=== PATIENT | male | born 1965 | race Caucasian/White ===

== ENCOUNTER 2016-12-25 22:35 | Inpatient (IN) | payer BC ==
--- NOTE | ~2016-12-25 | HP ---
Unit #: [id number] #: [id number] Patient: ANETTE MARSHALL [id number] [address] [address] [id number] MR#: [id number] NAME: ANETTE MARSHALL ROOM: 467 Age: 51 Sex: M Admission Date: 12/25/2016 : 1965 Attending Physician: Chandler Gaines M.D. HISTORY AND PHYSICAL HISTORY AND EXAM Mr. Marshall is a 51-year-old gentleman who was in his usual state of health and developed right-sided abdominal pain over the course of 12 to 18 hours. It was associated with nausea but no vomiting, fever or chills. He came to the emergency room and CT scan was consistent with early appendicitis. No other abnormalities were noted. PAST MEDICAL HISTORY Patient has a history of hypertension and he has had several colonoscopies because of a family history of colon cancer. IMMUNIZATIONS He has not had a flu vaccine. FAMILY HISTORY Colon cancer and lung cancer. SOCIAL HISTORY , works in a warehouse, nonsmoker, social alcohol drinker, does not use any recreational drugs. REVIEW OF SYSTEMS No fever, chills or vomiting. No diarrhea or dysuria. PHYSICAL EXAMINATION VITAL SIGNS: On current examination temperature is 99.7, pulse 109, respirations 18, blood pressure 108/60. GENERAL: He is awake, alert and oriented. HEENT: Unremarkable. No carotid bruits. CARDIAC EXAM: Regular rate and rhythm, without murmur. LUNGS: Clear. ABDOMEN: Soft. He has localized rebound tenderness in the right lower quadrant. EXTREMITIES: No edema. NEUROLOGICALLY: Grossly intact. No skin rashes or lesions. DIAGNOSTIC STUDIES LABORATORY: Morning labs are pending. In the emergency room at [facility] his laboratories were reported as normal. ASSESSMENT AND PLAN A 51-year-old gentleman with acute appendicitis. We discussed laparoscopic appendectomy including risks, benefits, complications and the Unit #: [id number] #: [id number] Patient: ANETTE MARSHALL possibility of conversion to open procedure. He understands and agrees to proceed. Dictated by Chandler Gaines M.D. GIANNA/mario TD: 12/26/2016 13:42 JOB #: [id number] HISTORY AND PHYSICAL X Chandler Gaines MD HISTORY AND PHYSICAL
--- NOTE | ~2016-12-25 | EKG ---
PATIENT: ANETTE MARSHALL UNIT #: [id number] Ventricular Rate: 105 BPM Atrial Rate: 105 BPM P-R Interval: 136 ms QRS Duration: 88 ms Q-T Interval: 318 ms QTC Calculation(Bezet): 420 ms P [place]: 53 degrees Calculated R [place]: 67 degrees Calculated T [place]: 45 degrees Diagnosis Line: Sinus tachycardia Diagnosis Line: Otherwise normal ECG Diagnosis Line: No previous ECGs available Diagnosis Line: Confirmed by ELINA MERCADO MD ([id number]) on Diagnosis Line: 12/27/2016 12:05:35 AM INTERPRETING MD: JESS ZHU
--- NOTE | ~2016-12-25 | OR ---
Unit #: [id number] #: [id number] Patient: ANETTE MARSHALL [id number] [address] [place], [place] [address] [id number] I MR#: [id number] NAME: ANETTE MARSHALL ROOM: 467 Date of Procedure: 12/26/2016 Admission Date: 12/25/2016 Surgeon: Chandler Gaines M.D. : 1965 Attending Physician: Chandler Gaines M.D. OPERATIVE REPORT PREOPERATIVE DIAGNOSIS Acute appendicitis. POSTOPERATIVE DIAGNOSIS Acute appendicitis. PROCEDURE PERFORMED Laparoscopic appendectomy. ANESTHESIA General endotracheal anesthesia. ESTIMATED BLOOD LOSS 20 mL. INDICATIONS FOR PROCEDURE A 51-year-old gentleman presents to the ER with abdominal pain and was found on evaluation to have uncomplicated acute appendicitis. DESCRIPTION OF PROCEDURE The patient was transported from his hospital room to the operating room and after induction of general endotracheal anesthesia, a Gonzalez catheter was placed. His abdominal wall hair was clipped, and he was prepped and draped in usual sterile fashion. The patient was already on IV antibiotics. A 5-mm supraumbilical incision was made. Veress needle was placed. Pneumoperitoneum was created. Then, a 5-mm trocar was placed. Laparoscope was introduced into the peritoneal cavity under direct vision. The suprapubic and the infraumbilical ports were placed under direct vision. The appendix was identified. It was purulent and it was mobilized from the lateral side wall and elevated. Mesoappendix was from the base of the appendix and the mesoappendix was clamped, divided, and ligated with an Endo DEIDRE. I then clamped, divided and ligated the appendix as it entered into the cecum. The appendix was put in an EndoCatch bag and brought out through the 12 mm port site. The staple lines were intact. There was good hemostasis. We irrigated and washed the area out. Once the irrigant was removed, we rechecked the area and there was excellent hemostasis. The 12 mm fascial defect was closed using a neoClose device and the closure was air-tight. I then reduced the pneumoperitoneum. Removed the laparoscope and trocars as we reduced pneumoperitoneum. A 0.5% Marcaine with epinephrine was infiltrated into each trocar site. The skin was closed with 4-0 Monocryl subcuticular closure and Dermabond skin adhesive. Gonzalez catheter was removed and he Unit #: [id number] #: [id number] Patient: ANETTE MARSHALL was transported to the recovery in stable condition. Dictated by... Yesi Sinha/xavier TD: 12/26/2016 16:54 JOB #: [id number] OPERATIVE REPORT X Chandler Gaines MD X PROCEDURE OPERATIVE NOTE
[2016-12-25] MEDS ORDERED: ZESTORETIC 10/11 TA1 PO (22:53)
[2016-12-25] MEDS ORDERED: VITAMIN D350000 UNIT PO (22:54)
[2016-12-26 07:34] LABS: BASOPHIL# 0.1 X10e3 (0-0.3); BASOPHIL% 0.7 % (0-2.5); HEMATOCRIT 43.5 % (38.0-50.0); HEMOGLOBIN 14.7 gm/dL (13.0-16.0); LYMPHOCYTE# 0.3 X10e3 (1.0-3.5); LYMPHOCYTE% 3.6 % (17.0-45.0); MEAN CELL VOLUME 88.6 FL (83-96); MEAN CORPUSCULAR HEMOGLOBIN 29.9 PG (28-34); MEAN CORPUSCULAR HGB CONC 33.8 g/dL (30-36); MEAN PLATELET VOLUME 7.5 FL (6.5-11.5); MONOCYTE# 0.2 X10e3 (0-1.0); MONOCYTE% 2.9 % (3.0-12.0); NEUTROPHIL# 6.5 X10e3 (1.5-7.1); NEUTROPHIL% 92.8 % (40-75); PLATELET COUNT 161 X10e3 (140-420); RED BLOOD COUNT 4.91 X10e (3.90-5.60); RED CELL DISTRIBUTION WIDTH 12.6 % (11.0-15.5)
[2016-12-26 07:36] LABS: DIFF IND NO
[2016-12-26 07:59] LABS: BLOOD UREA NITROGEN 17 mg/dL (9-23); CARBON DIOXIDE 27 mmol/L (22-31); CHLORIDE 101 mmol/L (100-111); GLOM FILT RATE Estimated ABOVE60 mL/min (>60); GLUCOSE FASTING 111 mg/dL (70-110); POTASSIUM 3.7 mmol/L (3.5-5.1); SODIUM 138 mmol/L (135-145)
[2016-12-26] MEDS ORDERED: HYDROCODONE/APA1 T16 PO (18:01)
== END 2016-12-26 19:10 | disposition home or self-care (01) | DRG 343 ==
LOC: C4C 22:35
PROVIDERS: Specialist
PROC: 0DTJ4ZZ Resection of Appendix, Percutaneous Endoscopic Approach (ICD-10-PCS; principal; 2016-12-26 12:30)
DX: K35.80 Unspecified acute appendicitis (principal); I10 Essential (primary) hypertension
CPT/HCPCS: 80048; 85025; 88304; 93005; C9113; J0131; J0330; J1650; J1885; J2270; J2405; J2543; J3010